=== PATIENT | female | born 1985 | race Caucasian/White ===

== ENCOUNTER 2016-06-02 21:23 | Emergency (ER) | payer OTHER ==
[~2016-06-02] VITALS: Ht 160 cm; Wt 54.4 kg
[~2016-06-02 21:23] MED LIST: Motrin,Rufen800 MG PO; PERCOCET 325 MG1 TA2 PO
[2016-06-02 22:15] VITALS: BP 124/64
== END 2016-06-02 23:33 | disposition home or self-care (01) ==
LOC: ED 21:23
DX: T42.4X1A Poisoning by benzodiazepines, accidental (unintentional), initial encounter (principal); Z91.040 Latex allergy status; Y92.9 Unspecified place or not applicable

== ENCOUNTER 2016-12-26 17:45 | Emergency (ER) | payer OTHER ==
[~2016-12-26] VITALS: Wt 54.4 kg
[2016-12-26 17:49] VITALS: BP 103/56
[2016-12-26] MEDS ORDERED: KEFLEX500 M1 PO (18:00)
[2016-12-26] MEDS ORDERED: Bactrim DS PO (18:00)
== END 2016-12-26 18:09 | disposition home or self-care (01) ==
LOC: ED 17:45
DX: L02.01 Cutaneous abscess of face (principal); F17.200 Nicotine dependence, unspecified, uncomplicated; Z88.8 Allergy status to other drugs, medicaments and biological substances; Z91.040 Latex allergy status

== ENCOUNTER 2017-07-04 22:17 | Emergency (ER) | payer SELFPAY ==
[~2017-07-04] VITALS: Ht 152.4 cm; Wt 61.2 kg
[~2017-07-04 22:17] MED LIST changes: +Bactrim DS PO; +KEFLEX500 M1 PO
[2017-07-04] MEDS ORDERED: Motrin,Rufen800 MG PO (23:26)
[2017-07-04] MEDS ORDERED: CEPHALEXIN500 M1 PO (23:26)
[2017-07-04 23:43] VITALS: BP 122/55
== END 2017-07-04 23:51 | disposition home or self-care (01) ==
LOC: ED 22:17
DX: L72.3 Sebaceous cyst (principal); F17.200 Nicotine dependence, unspecified, uncomplicated; Z91.040 Latex allergy status

== ENCOUNTER 2019-09-26 20:15 | Emergency (ER) | payer SELFPAY ==
[~2019-09-26] VITALS: Ht 154.9 cm; Wt 61.2 kg
[~2019-09-26 20:15] MED LIST changes: +CEPHALEXIN500 M1 PO
[2019-09-26 20:22] VITALS: BP 91/53
[2019-09-26 21:21] LABS: BASO # 0.1 10*3/uL (0.0-0.1); BASO % 0.7 % (0.0-1.0); EOS # 0.2 10*3/uL (0.0-0.4); EOS % 2.4 % (1.0-4.0); HEMATOCRIT 43.8 % (37.0-47.0); LYMPH # 2.2 10*3/uL (1.3-4.4); LYMPH % 25.5 % (27.0-41.0); MEAN CELL VOLUME 89.9 fl (81.0-99.0); MEAN CORPUSCULAR HGB 30.2 pg (27.0-31.0); MEAN CORPUSCULAR HGB CONC 33.6 g/dl (33.0-37.0); MEAN PLATELET VOLUME 9.4 fl (9.6-12.3); MONO # 0.8 10*3/uL (0.1-1.0); MONO % 9.3 % (3.0-9.0); NEUT # 5.4 10*3/uL (2.3-7.9); NEUT % 61.9 % (47.0-73.0); PLATELET COUNT AUTOMATED 395 10*3/uL (130-400); RED BLOOD COUNT 4.87 10*6/uL (4.10-5.10); RED CELL DISTRI WIDTH 12.5 % (0-14.5); WHITE BLOOD COUNT 8.8 10*3/uL (4.8-10.8)
[2019-09-26 21:36] LABS: ALBUMIN 3.5 gm/dl (3.1-4.5); ALKALINE PHOSPHATASE 88 U/L (45-117); BUN 11 mg/dl (7-24); CHLORIDE 110 mmol/L (98-107); CREATININE 0.74 mg/dL (0.55-1.02); POTASSIUM 3.8 mmol/L (3.5-5.1); SGOT/AST 21 IU/L (3-35); SGPT/ALT 70 U/L (12-78); SODIUM 140 mmol/L (136-145); TOTAL PROTEIN 7.1 gm/dL (6.4-8.2)
== END 2019-09-26 23:15 | disposition home or self-care (01) ==
LOC: ED 20:15
PROVIDERS: Emergency Medicine
DX: B34.9 Viral infection, unspecified (principal); Z91.040 Latex allergy status; Z79.899 Other long term (current) drug therapy; Z20.828 Contact with and (suspected) exposure to other viral communicable diseases

== ENCOUNTER 2021-12-23 14:48 | Emergency (ER) | payer OTHER ==
[~2021-12-23] VITALS: Ht 152.4 cm; Wt 63.5 kg
[2021-12-23 19:44] LABS: BASO # 0.1 10*3/uL (0.0-0.1); BASO % 1.2 % (0.0-1.0); EOS # 0.3 10*3/uL (0.0-0.4); HEMATOCRIT 43.3 % (37.0-47.0); LYMPH # 1.9 10*3/uL (1.3-4.4); LYMPH % 22.1 % (27.0-41.0); MEAN CELL VOLUME 90.6 fl (81.0-99.0); MEAN CORPUSCULAR HGB 30.8 pg (27.0-31.0); MEAN CORPUSCULAR HGB CONC 33.9 g/dl (33.0-37.0); MEAN PLATELET VOLUME 9.1 fl (9.6-12.3); MONO # 1.1 10*3/uL (0.1-1.0); MONO % 12.9 % (3.0-9.0); NEUT # 5.2 10*3/uL (2.3-7.9); NEUT % 60.3 % (47.0-73.0); PLATELET COUNT AUTOMATED 408 10*3/uL (130-400); RED BLOOD COUNT 4.78 10*6/uL (4.10-5.10); RED CELL DISTRI WIDTH 12.3 % (0-14.5); WHITE BLOOD COUNT 8.7 10*3/uL (4.8-10.8)
[2021-12-23 19:57] LABS: ALKALINE PHOSPHATASE 98 U/L (45-117); BUN 15 mg/dl (7-24); CHLORIDE 109 mmol/L (98-107); CREATININE 0.76 mg/dL (0.55-1.02); POTASSIUM 3.6 mmol/L (3.5-5.1); SGOT/AST 20 IU/L (3-35); SGPT/ALT 74 U/L (12-78); SODIUM 143 mmol/L (136-145); TOTAL PROTEIN 7.4 gm/dL (6.4-8.2)
== END 2021-12-23 21:46 | disposition home or self-care (01) ==
LOC: ED 14:48
PROVIDERS: Nurse Practitioner Family
DX: S80.11XA Contusion of right lower leg, initial encounter (principal); Z91.040 Latex allergy status; Z90.89 Acquired absence of other organs; W18.39XA Other fall on same level, initial encounter; Y93.89 Activity, other specified; Y92.89 Other specified places as the place of occurrence of the external cause; Y99.8 Other external cause status

== ENCOUNTER 2023-05-30 00:11 | Emergency (ER) | payer MEDICAID ==
[~2023-05-30] VITALS: Ht 167.6 cm; Wt 72.6 kg
[2023-05-30 00:24] VITALS: BP 132/76
[2023-05-30] MEDS ORDERED: methylPREDNISolone sod succ 125 MG VIAL IM ONE (00:55)
[2023-05-30] MEDS ORDERED: PREDNISONE20 M1 PO (01:16)
== END 2023-05-30 01:20 | disposition home or self-care (01) ==
LOC: ED 00:11
DX: T78.49XA Other allergy, initial encounter (principal); Z91.040 Latex allergy status; Z79.899 Other long term (current) drug therapy; Z79.2 Long term (current) use of antibiotics; X58.XXXA Exposure to other specified factors, initial encounter

== ENCOUNTER 2023-07-01 16:14 | Emergency (ER) | payer MEDICAID ==
[~2023-07-01] VITALS: Ht 152.4 cm; Wt 59.0 kg
[~2023-07-01 16:14] MED LIST changes: +PREDNISONE20 M1 PO
[2023-07-01 16:42] VITALS: BP 149/100
[2023-07-01 17:09] LABS: HEMATOCRIT 44.8 % (37.0-47.0); MANUAL DIFF REFLEX YES; MEAN CELL VOLUME 91.1 fl (81.0-99.0); MEAN CORPUSCULAR HGB 29.7 pg (27.0-31.0); MEAN CORPUSCULAR HGB CONC 32.6 g/dl (33.0-37.0); MEAN PLATELET VOLUME 8.8 fl (9.6-12.3); PLATELET COUNT AUTOMATED 460 10*3/uL (130-400); RED BLOOD COUNT 4.92 10*6/uL (4.10-5.10); RED CELL DISTRI WIDTH 13.2 % (0-14.5); WHITE BLOOD COUNT 11.6 10*3/uL (4.8-10.8)
[2023-07-01 17:30] LABS: ATYPICAL LYMPHS 1 % (0-0); BASOPHILS 1 % (0-1); OVALOCYTES FEW; PLATELET SUFFICIENCY HIGH (NORMAL); TOTAL CELLS COUNTED 100 #CELLS
[2023-07-01 17:54] LABS: BUN 9 mg/dl (9-23); CHLORIDE 107 mmol/L (98-107); POTASSIUM 3.7 mmol/L (3.4-5.1)
[2023-07-01] MEDS ORDERED: Ketorolac Tromethamine 15 MG/ML VIAL IV ONE (18:10)
[2023-07-01] MEDS ORDERED: SODIUM CHLORIDE 0.9% 1,000 ML IV ONE (18:10)
[2023-07-01] MEDS ORDERED: diphenhydrAMINE hydrochloride 50 MG/ML VIAL IV ONE (18:15)
[2023-07-01] MEDS ORDERED: Dexamethasone Sodium Phospha 20 MG/5 ML VIAL IV ONE (18:15)
== END 2023-07-01 19:17 | disposition home or self-care (01) ==
LOC: ED 16:14
PROVIDERS: Student in an Organized Health Care Education/Training Program
DX: G43.909 Migraine, unspecified, not intractable, without status migrainosus (principal); R79.82 Elevated C-reactive protein (CRP); Z91.040 Latex allergy status; Z88.8 Allergy status to other drugs, medicaments and biological substances; Z98.890 Other specified postprocedural states